=== PATIENT | female | born 1965 | race Caucasian/White ===

== ENCOUNTER → 2017-12-14 | Outpatient (CLI) | payer BC ==
[2016-08-31 15:20] VITALS: BP 149/87
[~2017-12-14] MED LIST: IBUP600T16 PO; LACT1CAP29 PO; MULT-208 PO; VALS320T12 PO
--- NOTE | 2017-12-14 12:49 | RAD ---
History: Left lower leg pain. Fall 2 weeks ago from standing on chair. Comparison: None. Findings: AP and lateral views of the left tibia and fibula. No acute fracture or acute malalignment is identified. No focal soft tissue swelling is identified. No radiopaque foreign body is seen. Impression: No acute osseous traumatic injury identified. Electronically signed by: Gustavo Jade MD (12/14/2017 12:46 PM) [facility] [place]
== END | disposition home or self-care (01) ==
LOC: RAD 10:38
PROVIDERS: ATTEND Physician Assistant
DX: S89.92XD Unspecified injury of left lower leg, subsequent encounter (principal); I10 Essential (primary) hypertension; E11.9 Type 2 diabetes mellitus without complications; X58.XXXD Exposure to other specified factors, subsequent encounter
CPT/HCPCS: 73590

== ENCOUNTER → 2020-12-30 | Outpatient (CLI) | payer BC ==
[2016-08-31 15:20] VITALS: BP 149/87
[~2020-12-30] MED LIST changes: -VALS320T12 PO; +VALS320T13 PO
--- NOTE | 2020-12-30 10:01 | RAD ---
CT abdomen pelvis without contrast. HISTORY: Right lower quadrant abdominal pain CT abdomen pelvis was done without contrast. Lung bases are clear. There is no pleural effusion. Live r is unremarkable. The patient's had a cholecystectomy. There is a small hiatus hernia. The patient's had a sleeve gastrectomy. Spleen and adrenal glands are normal. Pancreas is normal. There is no mass or hydronephrosis in the kidneys. There is a punctate intrarenal calculus in the upper right kidney. A ureteral calculus is not identified. There is a small umbilical hernia. Patient's had a hysterecto my. There is mild diverticulosis of the colon. I do not see a diverticulitis. Appendix is normal with out an acute appendicitis. Bowel pattern is normal without bowel obstruction. IMPRESSION: 1. Punctate intrarenal calculi right kidney. 2. No ureteral calculus or hydronephrosis. 3. Normal appendix. 4. Diverticulosis without diverticulitis. 5. No bowel obstruction. 6. Small hiatus hernia. 7. Small umbilical hernia. PQRS Compliance Statement: One or more of the following individualized dose reduction techniques were utilized for this examinat ion: 1. Automated exposure control 2. Adjustment of the mA and/or kV according to patient size 3. Use of iterative reconstruction technique Electronically signed by: Farhan Mallory MD (12/30/2020 9:58 AM) [id number]
== END ==
LOC: CT 09:38
PROVIDERS: ATTEND Physician Assistant Medical
DX: K44.9 Diaphragmatic hernia without obstruction or gangrene (principal); K42.9 Umbilical hernia without obstruction or gangrene; K57.30 Diverticulosis of large intestine without perforation or abscess without bleeding
CPT/HCPCS: 74176